=== PATIENT | female | born 2005 | race Two or more races ===

== ENCOUNTER 2024-06-30 09:51 | Inpatient (IN) | payer MEDICAID, SELFPAY ==
[2024-06-30] VITALS (141 sets, daily range): BP systolic 101–155; BP diastolic 51–97; PULSE 59–118; RESP 16–18; TEMP 36.3–37.2; O2SAT 52–100; BMI 38.5
[2024-06-30 10:19] LABS: ROM Kit Lot # 57805053; ROM Swab Mixed By: OSEGA; Rupture of Fetal Membranes Positive (Negative); Swb Mxed in Solvent 1 min? Yes
[2024-06-30] MEDS: SODIUM CHLORIDE 0.9% 1000 ML 1,000 ML 125 ML IV (10:35)
--- NOTE | 2024-06-30 11:24 | ESHP_ITS ---
Documentation for date of: 06/30/24 OB Labor/Induct. HPI History of Present Illness Chief complaint: 18 y/o 38w 2d presents to L&D in labor with SROM : 2 Para: 1 Term pregnancies: 1 pregnancies: 0 Living children: 1 History of Abortions: Spontaneous and Elective: 0 History of Vaginal deliveries: 1 History of sections: No History of : No JOSE: 07/10/24 Gestational Age (weeks): 38 Gestational Age (days): 2 History of present illness: 18 y/o 38w 2d presents to L&D in labor with SROM at 4/80/-2 vertex. Pt is milo 2-3 minutes. GBS is neg. has been uncomplicated. EFW 3200g History of Present Dating criteria: LMP confirmed by 1st trimester US Adequate Care: Yes Ultrasounds: normal 1st trimester US and normal mid trimester US Obstetrical complications: none Labs Labs: Negative: Hepatitis B, HIV, Chlamydia, Gonorrhea and Group Beta Strep Review of Systems Review of Systems Systems Reviewed: All systems reviewed, normal except as documented Past Medical History Surgical History SURGICAL: Negative Section Meds Home Medications and Allergies Home Medications ?Medication ?Instructions ?Recorded ?Confirmed ?Type No Known Home Medications 06/30/24 06/30/24 History Allergies Allergy/AdvReac Type Severity Reaction Status Date / Time No Known Allergies Allergy Verified 06/30/24 10:16 OB Exam Physical Exam Vital signs: Pulse BP 63 101/55 L 06/30/24 11:17 06/30/24 11:17 Constitutional Constitutional: no acute distress Routine HEENT Exam Head: Present normocephalic and atraumatic Eye: Present EOMI, PERRL and normal accommodation ENT: Present mucous membranes moist Routine Neck Exam Neck: Present full ROM Routine Respiratory Exam Respiratory: Absent respiratory distress Routine Cardiovascular Exam Cardiovascular: Present RRR Routine Abdominal Exam Abdominal: Present soft and normoactive bowel sounds Routine Exam External: Present normal urethra appearance; Absent lesions Detailed Labor and Delivery Exam Dilation (cm): 4 Effacement (%): 80 Cervix position: posterior station: -2 Consistency: soft Presentation: Vertex Membranes: ruptured Amniotic fluid: clear Baseline heart rate: 130 monitor accelerations: 15x15 monitor decelerations: None benefits assistant variability: Moderate (11-25) Contraction frequency (min): 2-3 Contraction intensity: Moderate Routine Extremities Exam Extremities: Present full ROM Routine Back/Spine/Pelvis Exam Back/Spine: Present full ROM Routine Skin Exam Skin: Present intact, dry and warm Routine Neurological Exam Neurological: Present alert, oriented X3 and CN II-XII intact Routine Psychiatric Exam Psychiatric: Present normal affect and normal thought process OB Assessment & Plan Assessment and Plan (1) Normal labor: Status: Acute (2) Spontaneous rupture of amniotic membranes: Status: Acute (3) with 38 completed weeks gestation: Status: Acute Additional Plan Induction method: none Plan: augmentation, anticipate NVD and consult prn Additional Plan Comment: Routine admit orders Consult anesthesia for an epidural
[2024-06-30 12:08] LABS: Basophils % (Auto) 0 % (0-2.5); Eosinophils # (Auto) 0.1 Thou/mm3 (0.0-0.5); Eosinophils % (Auto) 1 % (0-10); Hematocrit 31.7 % (36.0-46.0); Hemoglobin 10.8 g/dL (12.0-16.0); Immature Granulocytes % (Auto) 0 % (0-0); Immature Granulocytes Auto 0.02 Thou/mm3 (0.00-0.00); Lymphocytes # (Auto) 2.1 Thou/mm3 (1.0-5.0); Lymphocytes % (Auto) 27 % (10-50); Mean Corpuscular HGB Conc 34.1 g/dl (31.0-37.0); Mean Corpuscular Hemoglobin 29.3 pg (25.0-35.0); Mean Corpuscular Volume 86 fL (80-100); Monocytes # (Auto) 0.5 Thou/mm3 (0.0-0.8); Monocytes % (Auto) 7 % (0-12); Neutrophils # (Auto) 5.1 Thou/mm3 (1.8-7.7); Neutrophils % (Auto) 65 % (37-80); Nucleated Red Blood Cell % 0 /100 WBC (0); Platelet Count 274 Thou/mm3 (140-440); RDW Standard Deviation 41.8 fL (36.4-46.3); Red Blood Count 3.68 Miln/mm3 (4.00-5.20); White Blood Count 7.8 Thou/mm3 (4.5-11.0)
[2024-06-30 12:42] LABS: Syphilis Nonreactive (Nonreactive)
[2024-06-30] MEDS: RINGERS LACTATED 1000 ML 1,000 ML 999 ML IV (13:50)
--- NOTE | 2024-06-30 14:14 | PD.LDPN ---
Documentation for date of: 06/30/24 OB Labor Progress Note Pain Control Pain control: other (Requesting an epidural) Pelvic Exam Dilation (cm): 3.5 Effacement (%): 80 station: -2 Amniotic membrane status: Ruptured Contractions Monitor mode: External Contraction frequency: 2-7 Contraction duration: 40-60 Contraction phase: Contraction Contraction intensity: Moderate Status status: Category l Assessment and Plan Assessment: other (latent labor) Plan OB labor note: begin Pitocin augmentation Comments: Pt to get an epidural then start pitocin per protocol Anticipate
[2024-06-30] MEDS: RINGERS LACTATED 1000 ML 1,000 ML 100 ML IV (15:30)
[2024-06-30] MEDS: MINERAL OIL 30 ML UDC TOP (20:10)
[2024-06-30] MEDS: OXYTOCIN in NS 30 units 30 UNIT/500 ML BAG 999 UNIT IV (20:15)
--- NOTE | 2024-06-30 20:21 | ESDS_ITS ---
DS: Providers Provider Date of admission: 06/30/24 10:23 Primary care physician: Physician No Primary/Family Admitting Provider: Denny Paredes MD Attending Provider on Admission: Sailaja Sharpe CNM Attending Provider on DC: Sailaja Sharpe CNM Discharging Provider: Sailaja Sharpe CNM Anticipated date of discharge: 07/01/24 DS: Diagnosis Discharge Diagnosis (1) Normal spontaneous vaginal delivery: Status: Acute (2) Encounter for care of lactating mother: Status: Acute (3) Rubella nonimmune status, delivered, current hospitalization: Status: Acute (4) Spontaneous rupture of amniotic membranes: Status: Acute (5) with 38 completed weeks gestation: Status: Acute (6) Normal labor: Status: Acute Problem List Completed Was Problem List Reviewed/Reconciled?: Yes Summary/Hosp Course Brief History: 18 y/o 38w 2d presents to L&D in labor with SROM at 4/80/-2 vertex. Pt is milo 2-3 minutes. GBS is neg. has been uncomplicated. EFW 3200g. 06/30/24: of a viable male . Infant's anterior shoulder delivered with gentle downward traction subsequent deliver the posterior shoulder and the body without complications. Infant placed on mother's abdomen. Vigorous cry upon delivery. Cord was clamped. Cut by FOB. Cord blood obtained. Three- vessel cord noted. Placenta expelled spontaneously and intact. No lacerations noted. Perineum intact. Excellent hemostasis achieved after vigorous fundal massage and removal of clots from the posterior fornix. EBL 200. Sponge and needle count correct. Mother and baby stable, skin to skin and bonding in LDR. 07/01/24: day 1. Patient is stable and afebrile. Doing well and ambulating with no problems voiding with no problems denies dizziness or shortness of breath. Uterus is nontender fundus firm minimal lochia. Discharge instructions given patient to go home at the 24-hour ara this evening. Follow-up with Sailaja Sharpe CNM in 3 weeks Peripartum Data Delivery Method: Normal Vaginal Delivery Episiotomy Description: None Laceration Description: no complications: none [place] 1: Gender: Male Disposition of : home Status at Discharge Cognitive/behavioral status at discharge: Alert and oriented x 3 Functional status at discharge: independent ambulation Overall status at discharge: patient is progressing back to baseline Time Spent with Patient Time attestation: Total time spent providing and/or coordinating discharge services: Time spent: Greater than 30 minutes Exam Vital Signs Temp Pulse Resp BP Pulse Ox O2 Del Method 98.6 F 113 H 16 138/86 H 100 Room Air 06/30/24 19:06 06/30/24 20:05 06/30/24 19:06 06/30/24 20:05 06/30/24 20:16 06/30/24 19:06 Constitutional Constitutional: no acute distress Routine HEENT Exam Head: Present normocephalic and atraumatic Eye: Present EOMI, PERRL and normal accommodation ENT: Present mucous membranes moist Routine Neck Exam Neck: Present supple, full ROM and trachea midline Routine Respiratory Exam Respiratory: Present chest non-tender, lungs clear, normal breath sounds and no resp distress Routine Cardiovascular Exam Cardiovascular: Present RRR Routine Abdominal Exam Abdominal: Present soft and normoactive bowel sounds; Absent tenderness or distended Comments: Uterus nontender Fundus firm Routine Exam Patient deferred: external exam Routine Extremities Exam Extremities: Present full ROM, pulses intact and normal capillary refill; Absent calf tenderness or tenderness Routine Back/Spine/Pelvis Exam Back/Spine: Present full ROM Routine Skin Exam Skin: Present intact, dry and warm Routine Neurological Exam Neurological: Present alert, oriented X3 and CN II-XII intact Routine Psychiatric Exam Psychiatric: Present normal affect and normal thought process Discharge Plan Plan Patient Disposition: HOME (Self Care) Patient condition on transfer: Stable Prescriptions/Referrals Prescriptions/Med Rec: New docusate sodium [Colace] 100 mg capsule 100 mg PO BID Qty: 60 0RF ibuprofen 600 mg tablet 600 mg PO Q6H PRN (Reason: pain) Qty: 90 0RF lanolin 50 % ointment 1 applic topical TID PRN (Reason: skin irritation) Qty: 15 0RF Referrals: No Primary/Family,Physician [Primary Care Provider] - Patient/Caregiver Discharge Instructions Meds to Beds: No Discharge Activity: activity as tolerated Other Discharge Activity Instructions:: Follow-up with Sailaja Sharpe CNM in 3 weeks post Education Materials: After a Vaginal Print Language: Ukrainian Stand Alone Forms: [facility]aba Award Info., Patient Portal Info Letter Vaccines Vaccines Given During Stay: MMR Discharge Order Discharge Orders: Discharge (Routine); Ordered 07/01/24 Ordered By: Sailaja Sharpe Planned Discharge Date 07/01/24
--- NOTE | 2024-06-30 20:25 | PD.LDDELS ---
Data ([place]) Data Hx Section: No Maternal Blood Type: O Pos Rubella Titre: Negative RPR: Non-reactive Labs: Negative: RPR, Hepatitis B, HIV, Chlamydia, Gonorrhea and Group Beta Strep and Unknown: Herpes Type 1 and Herpes Type 2 : 2 Para: 1 Term: 1 : 0 Livin : 0 Delivery Data ([place]) Labor Data Stimulated/Augmented: No Induction: No ROM Date: 06/30/24 ROM Time: 06:00 Rupture Type: SROM Amniotic Fluid: Clear Delivery Data EDC: 07/12/24 EDC calculated by:: LMP/early US confirmation Labor Onset Stage 1 Date: 06/30/24 Labor Onset Stage 1 Time: 10:14 Labor Onset Stage 2 Date: 06/30/24 Labor Onset Stage 2 Time: 19:45 Delivery Date: 06/30/24 Delivery Time: 20:12 Gestational age (weeks): 38 Gestational age (days): 2 Placenta Delivery Date: 06/30/24 Placenta Delivery Time: 20:15 Delivered by: Sailaja Sharpe Delivery nurse: Nina Fleming [employer] Technician at delivery: No Support person(s) at delivery: FOB Other staff at delivery: 2nd Nurse Other staff at delivery: Violetta Cruz Delivery Method Delivery: Vaginal Delivery Type: Spontaneous Presentation: Vertex Position: OA Anesthesia Type Primary Anesthesia: Epidural Secondary Anesthesia: None Delivery Room Medications Other Intrapartum Medications: Yes Post Delivery Medications N/A: No Placenta Placenta Delivery: Spontaneous Placenta Cultures Obtained: No Placenta Sent for Examination: No Cord Sample: Cord Blood Obtained Episiotomy Episiotomy: None EBL Estimated blood loss (ml): 200 Umbilical Cord Umbilical Vessels: 3 Nuchal Cord: Not Applicable Body Cord: Not Applicable Additional Procedures of a viable male infant. 's anterior shoulder delivered with gentle downward traction subsequent deliver the posterior shoulder and the body without complications. Infant placed on mother's abdomen. Vigorous cry upon delivery. Cord was clamped. Cut by FOB. Cord blood obtained. Three-vessel cord noted. Placenta expelled spontaneously and intact. No lacerations noted. Perineum intact. Excellent hemostasis achieved after vigorous fundal massage and removal of clots from the posterior fornix. EBL 200. Sponge and needle count correct. Mother and baby stable, skin to skin and bonding in LDR. Data ([place]) [place] Data Gender: Male Weight Grams: 3315 1 Minute Total: 9 5 Minute Total: 9
[2024-06-30] MEDS: OXYTOCIN in NS 20 units 20 UNIT/1,000 ML BAG 125 UNIT IV (20:53)
[2024-06-30] MEDS: IBUPROFEN TAB 400 MG TABLET 800 MG PO (23:02)
[2024-07-01 02:22] LABS: Basophils % (Auto) 0 % (0-2.5); Eosinophils % (Auto) 0 % (0-10); Hematocrit 30.5 % (36.0-46.0); Hemoglobin 10.3 g/dL (12.0-16.0); Immature Granulocytes % (Auto) 0 % (0-0); Immature Granulocytes Auto 0.06 Thou/mm3 (0.00-0.00); Lymphocytes # (Auto) 2.4 Thou/mm3 (1.0-5.0); Lymphocytes % (Auto) 17 % (10-50); Mean Corpuscular HGB Conc 33.8 g/dl (31.0-37.0); Mean Corpuscular Hemoglobin 29.2 pg (25.0-35.0); Mean Corpuscular Volume 86 fL (80-100); Monocytes # (Auto) 0.9 Thou/mm3 (0.0-0.8); Monocytes % (Auto) 6 % (0-12); Neutrophils # (Auto) 11.1 Thou/mm3 (1.8-7.7); Neutrophils % (Auto) 76 % (37-80); Nucleated Red Blood Cell % 0 /100 WBC (0); Platelet Count 304 Thou/mm3 (140-440); RDW Standard Deviation 41.4 fL (36.4-46.3); Red Blood Count 3.53 Miln/mm3 (4.00-5.20); White Blood Count 14.6 Thou/mm3 (4.5-11.0)
[2024-07-01 04:15] VITALS: BP 101/66; RESP 16; TEMP 36.7
--- NOTE | 2024-07-01 07:42 | PD.LDDS ---
DS: Providers Provider Date of admission: 06/30/24 10:23 Primary care physician: Physician No Primary/Family Admitting Provider: Denny Paredes MD Attending Provider on Admission: Sailaja Sharpe CNM Consults: 06/30/24 21:13 Referral Routine Comment: Attending Provider on DC: Sailaja Sharpe CNM Discharging Provider: Sailaja Sharpe CNM Anticipated date of discharge: 07/01/24 DS: Diagnosis Discharge Diagnosis (1) Normal spontaneous vaginal delivery: Status: Acute (2) Rubella nonimmune status, delivered, current hospitalization: Status: Acute (3) Encounter for care of lactating mother: Status: Acute (4) Spontaneous rupture of amniotic membranes: Status: Acute (5) with 38 completed weeks gestation: Status: Acute (6) Normal labor: Status: Acute Problem List Completed Was Problem List Reviewed/Reconciled?: Yes Summary/Hosp Course Brief History: 18 y/o 38w 2d presents to L&D in labor with SROM at 4/80/-2 vertex. Pt is milo 2-3 minutes. GBS is neg. has been uncomplicated. EFW 3200g. 06/30/24: of a viable male infant. Infant's anterior shoulder delivered with gentle downward traction subsequent deliver the posterior shoulder and the body without complications. placed on mother's abdomen. Vigorous cry upon delivery. Cord was clamped. Cut by FOB. Cord blood obtained. Three-vessel cord noted. Placenta expelled spontaneously and intact. No lacerations noted. Perineum intact. Excellent hemostasis achieved after vigorous fundal massage and removal of clots from the posterior fornix. EBL 200. Sponge and needle count correct. Mother and baby stable, skin to skin and bonding in LDR. 07/01/24: day 1. Patient is stable and afebrile. Doing well and ambulating with no problems voiding with no problems denies dizziness or shortness of breath. Uterus is nontender fundus firm minimal lochia. Discharge instructions given patient to go home at the 24-hour ara this evening. Follow-up with Sailaja Sharpe CNM in 3 weeks Peripartum Data Delivery Method: Normal Vaginal Delivery Episiotomy Description: None Laceration Description: no complications: none [place] 1: Gender: Male Disposition of : home Status at Discharge Cognitive/behavioral status at discharge: Alert and oriented x 3 Functional status at discharge: independent ambulation Overall status at discharge: patient is progressing back to baseline Time Spent with Patient Time attestation: Total time spent providing and/or coordinating discharge services: Time spent: Greater than 30 minutes Exam Vital Signs Temp Pulse Resp BP Pulse Ox O2 Del Method 98.1 F 61 16 101/66 52 L Room Air 07/01/24 04:15 06/30/24 22:13 07/01/24 04:15 07/01/24 04:15 06/30/24 21:49 07/01/24 04:15 Constitutional Constitutional: no acute distress Routine HEENT Exam Head: Present normocephalic and atraumatic Eye: Present EOMI, PERRL and normal accommodation ENT: Present mucous membranes moist Routine Neck Exam Neck: Present supple, full ROM and trachea midline Routine Respiratory Exam Respiratory: Present chest non-tender, lungs clear, normal breath sounds and no resp distress Routine Cardiovascular Exam Cardiovascular: Present RRR Routine Abdominal Exam Abdominal: Present soft and normoactive bowel sounds; Absent tenderness or distended Comments: Uterus nontender fundus firm Routine Exam Patient deferred: external exam Routine Extremities Exam Extremities: Present full ROM, pulses intact and normal capillary refill; Absent calf tenderness or tenderness Routine Back/Spine/Pelvis Exam Back/Spine: Present full ROM Routine Skin Exam Skin: Present intact, dry and warm Routine Neurological Exam Neurological: Present alert, oriented X3 and CN II-XII intact Routine Psychiatric Exam Psychiatric: Present normal affect and normal thought process Discharge Plan Plan Patient Disposition: HOME (Self Care) Patient condition on transfer: Stable Prescriptions/Referrals Prescriptions/Med Rec: New docusate sodium [Colace] 100 mg capsule 100 mg PO BID Qty: 60 0RF ibuprofen 600 mg tablet 600 mg PO Q6H PRN (Reason: pain) Qty: 90 0RF lanolin 50 % ointment 1 applic topical TID PRN (Reason: skin irritation) Qty: 15 0RF Referrals: No Primary/Family,Physician [Primary Care Provider] - Patient/Caregiver Discharge Instructions Meds to Beds: No Discharge Activity: activity as tolerated Other Discharge Activity Instructions:: Follow-up with Sailaja Sharpe CNM in 3 weeks post Education Materials: After a Vaginal Print Language: [place] Stand Alone Forms: [facility]aba Award Info., Patient Portal Info Letter Vaccines Vaccines Given During Stay: MMR Discharge Order Discharge Orders: Discharge (Routine); Ordered 07/01/24 Ordered By: Sailaja Sharpe Planned Discharge Date 07/01/24
[2024-07-01 08:02] VITALS: BP 111/74; RESP 16; TEMP 36.9; O2SAT 100
[2024-07-01] MEDS: DOCUSATE SOD 100 MG CAPSULE PO (08:39)
[2024-07-01 11:55] VITALS: BP 109/69; RESP 18; TEMP 37.6; O2SAT 99
[2024-07-01 16:30] VITALS: BP 114/74; PULSE 61; RESP 15; TEMP 36.8; O2SAT 99
[2024-07-01 19:53] VITALS: BP 106/73; PULSE 75; RESP 17; TEMP 36.9; O2SAT 99
== END 2024-07-01 22:35 | disposition home or self-care (01) | DRG 560 ==
LOC: S4SX 20:24 → S4NX 22:41
PROVIDERS: Nurse Practitioner Women's Health; Admitting Provider Student in an Organized Health Care Education/Training Program; Visit Provider Obstetrics & Gynecology
DX: O42.02 Full-term premature rupture of membranes, onset of labor within 24 hours of rupture (principal); Z37.0 Single live birth; Z3A.38 38 weeks gestation of pregnancy; Z78.9 Other specified health status
CPT/HCPCS: 36415; 59025; 59409; 84112; 85025; 86780; 86850; 86900; 86901; 94762; J2590; J2795; J3010; J7030; J7120; A9270